=== PATIENT | male | born 2000 | race Caucasian/White ===

== ENCOUNTER → 2023-07-27 | Outpatient (CLI) | payer OTHER, SELFPAY ==
--- OUTSIDE RECORDS SUMMARY | 2023-07-28 02:14 | XMS RPT_ITS | CCD ---
Author Name Unknown Address [address] [place] [address] Organization [facility] Care Team Providers Care Labor Economics Professor Name Role Phone Jasen Hallman Unavailable Unavailable Jasen Hallman Unavailable Unavailable Lisa Pineda MD Primary Care Provider LISA PINEDA Primary Care Unavailable HEMALATHA GARCIA Referring Unavailable CARLOS JOVEL Referring Unavail LISA Hebert Primary Care Unavailable LISA PINEDA Primary Care Unavailable HEMALATHA GARCIA Attending Unavailable CARLOS JOVEL Admitting Unavail CARLOS Galan Referring Unavail able DALIA BAUER Attending Unavailable LISA PINEDA Primary Care Unavailable CARLOS JOVEL Referring Unavail able LISA PINEDA Primary Care Unavailable LISA PINEDA Primary Care Unavailable CARLOS JOVEL Referring Unavail able Allergies Allergy Classification Reported Allergen(s) Allergy Type Date of Onset Reaction(s) Facility (3 sources) Penicillin; Translations: [PENICILLIN] Drug Allergy 05-21-2017 Italo Slaughter [facility] Medications Completed/Discontinued Medications Medication Drug Class(es) Dates Sig (Normalized) Sig (Original) acetaminophen 325 mg / oxyCODONE hydrochloride 5 mg oral tablet (2 sources) Opioid Agonist Start: 08-24-2022 take 1-2 tablets by mouth every eight hours as needed for pain oxyCODONE-acetami nophen (PERCOCET) 5-325 mg tablet Indications: Calculus of ureter Take 1-2 tablets by mouth every 8 hours as needed for pain. 20 tablet 0 08/24/2022 Active Problems Active Problems Problem Classification Problem Date Documented Da te Episodic/Chronic Abdominal pain (3 sources) Left flank pain; Translations: [Unspecified abdominal pain] Onset: 08-10-2022 Episodic Calculus of urinary tract (20 sources) Kidney stone; Translations: [Calculus of kidney] Onset: 03-22-2017 Episodic Other nutritional; endocrine; and metabolic disorders (7 sources) Calculus = calcium oxalate; Translations: [Other disorders of calcium metabolism] Onset: 01-11-2018 01-11-2018 Chronic Unclassified (1 source) Unknown / UNK(Unknown) Onset: 03-22-2017 Past or Other Problems Problem Classification Problem Date Documented Da te Episodic/Chronic Genitourinary symptoms and ill-defined conditions (20 sources) Oliguria; Translations: [Anuria and oliguria] Onset: 01-11-2018 01-11-2018 Episodic Results Test Name Value Interpretation Reference Range Facil ity Vital Signs Date Time Vital Sign Value Performing Clinician Facavinash lity 08-28-2022 15:10-0400 Body height 182.9 cm Pst 1 [facility] 08-28-2022 15:10-0400 Body temperature 99.3 [degF] Pst [address] [facility] 08-28-2022 15:10-0400 Body weight 72.58 kg Pst 1 [facility] 08-28-2022 15:10-0400 Heart rate 61 /min Pst 1 [facility] 08-28-2022 15:10-0400 Respiratory rate 18 /min Pst [address] [facility] 08-28-2022 15:10-0400 SaO2% (BldA) [Mass fraction] 99 % Pst 1 [facility] 07-28-2022 15:11-0400 Body height 185.4 cm Hemalatha Garcia APRN.CNP Work Phone: [facility] 07-28-2022 15:11-0400 Body weight 72.58 kg Hemalatha Garcia APRN.CNP Work Phone: [facility] 07-28-2022 15:11-0400 Diastolic blood pressure 80 mm[Hg] Hemalatha Garcia APRN.CNP Work Phone: [facility] 07-28-2022 15:11-0400 Systolic blood pressure 130 mm[Hg] Hemalatha Garcia APRN.CNP Work Phone: [facility] Encounters Encounter Date Encounter Type Care Provider Facility Start: 09-23-2022 End: 09-23-2022 ambulatory LISA PINEDA Facility:[facility] Start: 09-01-2022 End: 09-03-2022 ambulatory CARLOS JOVEL Facility:[facility] Start: 08-28-2022 End: 08-28-2022 [facility] Start: 08-28-2022 End: 08-29-2022 ambulatory CARLOS JOVEL Pre Surgical Testing Procedures Date Procedure Procedure Detail Performing Clinician Start: 08-10-2022 Ct abdomen & pelvis w/o contrast material Hemalatha Garcia APRN.DEVELOPMENT WRITER Work Phone: Start: 07-28-2022 Culture bacterial quanttative colony count urine Hemalatha Garcia ENGINEER SPECIALIST.ARTI Work Phone: Start: 07-28-2022 Urnls dip stick/tabl et rgnt auto w/o microscopy Hemalatha Garcia ENGINEER SPECIALIST.ARTI Work Phone: Plan of Treatment Date Care Activity Detail Author Start: 01-15-2023 [facility] Start: 05-17-2022 DEPRESSION ASSESSMENT DEPRESSION ASSESSMENT [facility] Start: 01-15-2022 Influenza vaccination INFLUENZA (#1) [facility] Start: 2017 Urine microalbumin profile DTAP,TDAP,TD (1 - Tdap) [facility] Start: 01-15-2016 HEPATITIS C SCREENING HEPATITIS C SCREENING [facility] Start: 01-15-2016 HIV SCREENING HIV SCREENING [facility] Start: 01-15-2012 PEDS TO ADULT TRANSITION ANNUAL ASSESSMENT PEDS TO ADULT TRANSITION ANNUAL ASSESSMENT [facility] Start: 2010 PEDS TO ADULT TRANSITION INITIAL DISCUSSION PEDS TO ADULT TRANSITION INITIAL DISCUSSION [facility] Start: 2009 HPV VACCINE (1 - Male 2-dose series) HPV VACCINE (1 - Male 2-dose series) [facility] Start: 01-15-2008 MENINGOCOCCAL B: Consider based on risk (1 of 2 - Risk Bexsero 2-dose series) MENINGOCOCCAL B: Consider based on risk (1 of 2 - Risk Bexsero 2-dose series) [facility] Start: 1998 COVID-19 VACCINE (#1) COVID-19 VACCINE (#1) [facility] Start: 1998 HEPATITIS B (1 of 3 - 3-dose series) HEPATITIS B (1 of 3 - 3-dose series) [facility] Bacteria identified in Urine by Culture URINE CULTURE Microbiology Routine Kidney stone 07/28/2022 3:50 PM EDT [facility] Work Phone: End: 08-27-2023 Ct abdomen & pelvis w/o contrast material CT ABD/PEL WO IVCON Radiology Routine Left flank pain 1 Occurrences starting 07/28/2022 until 08/27/2023 [facility] Work Phone: Payers Date Payer Category Payer Unknown [id number] 2010 Unknown JYOTHI ROE BS FEP PPO [id number] 2010-Present [phone] [address] [place] [address] PPO [id number] Social History Date Type Detail Facility Start: 07-28-2022 Tobacco smoking stat [facility] Never smoked tobacco [facility] Start: 07-28-2022 Tobacco use and exposure Smoke less tobacco non-user [facility] Start: 07-28-2022 End: 08-28-2022 Alcohol intake Current non-drinker of alcohol (finding) [facility] Start: 1998 Sex Assigned At Not on file C [facility] Clinical Notes 07-28-2022 to 09-23-2022 Kaylin Abreu APRN.CNP - 08/28/2022 3:00 PM EDTPatient InstructionsTelephone Encounter - Anastacio Mccray Ma - 08/24/2022 12:48 PM EDTTelephone Encounter - Carmen Berumen [facility] Account Director - 08/24/2022 9:38 AM EDT Note Date & Type Note Facility 09-23-2022 Note HNO ID: [id number] Author: Mallory Aden RT(R) Service: Radiology Author Type: Technologist Type: Progress Notes Filed: 09/23/2022 3:03 PM Note Text: Radiology Service Progress Note PATIENT NAME: Arjun Sanchez DATE OF SERVICE: September 23, 2022 TIME: 2:48 PM PATIENT IDENTITY VERIFICATION COMPLETED USING TWO (2) IDENTIFIERS: Name and Date of confirmed by patient verbally. FALL SCREENING: Has the patient had 2 falls in the last year or 1 fall with injury or currently using an Ambulatory Assistive Device (Walker, Cane, Wheelchair, Crutches, etc.)? No PATIENT GENDER DATA: Male PATIENT RELEVANT IMPLANT DATA REVIEWED: Yes RADIOLOGY DEPARTMENT: General X-ray: Exam(s) Completed: Abdomen X-Ray: Abdomen PERIPHERAL IV DATA: Not applicable SIGNED BY: Mallory Aden RT(R) September 23, 2022 2:48 PM [facility] 09-03-2022 Note HNO ID: [id number] Author: Carlos Jovel MD Service: Urology Author Type: Physician Type: Progress Notes Filed: 09/03/2022 10:06 AM Note Text: UROLOGY PROGRESS NOTE PATIENT NAME: Arjun Sanchez DATE OF : 2000 ADMISSION DATE: 09/01/2022 9:01 AM Subjective No acute events overnight. Nephrostomy catheter and urethral catheter removed yesterday. Patient is voiding without issue. Tolerating regular diet. Flank pain improved. Greatly improved leakage from left flank incision overnight. Dressing changed last night at ~8PM and is dry this morning. Objective VS: BP 135/68 Pulse 77 Temp 36.9 ?C (98.4 ?F) (Oral) Resp 18 Ht 182.9 cm (6') Wt 72.6 kg (160 lb) SpO2 96% BMI 21.70 kg/m? I AND O - 24hr: Intake/Output Summary (Last 24 hours) at 09/03/2022 0707 Last data filed at 09/03/2022 0000 Gross per 24 hour Intake -- Output 1800 ml Net -1800 ml Physical Exam: General: Neck: Resp: Abdomen: No acute distress Supple Normal effort Soft, non-tender, nondistended : Mild left flank tenderness. Left flank incision c/d/i. Left flank dressing dry this morning. Bladder non-distended Labs and Imaging Studies LABS: BMP: Glucose (mg/dL) Date Value 09/03/2022 108 12/09/2017 101 Potassium Date Value 09/03/2022 4.2 mmol/L 12/09/2017 4.2 mEq/L Sodium Date Value 09/03/2022 138 mmol/L 12/09/2017 140 mEq/L Chloride Date Value 09/03/2022 102 mmol/L 12/09/2017 107 mEq/L CO2 Date Value 09/03/2022 28 mmol/L 12/09/2017 27 mEq/L Creatinine (mg/dL) Date Value 09/03/2022 1.04 12/09/2017 0.93 BUN (mg/dL) Date Value 09/03/2022 10 12/09/2017 10 Anion Gap Date Value 09/03/2022 8 mmol/L 12/09/2017 10 Calcium (mg/dL) Date Value 12/09/2017 8.5 Calcium, Total (mg/dL) Date Value 09/03/2022 9.1 CBC: Hemoglobin (g/dL) Date Value 09/03/2022 10.4 HGB (g/dL) Date Value 12/09/2017 13.3 Hematocrit (%) Date Value 09/03/2022 30.0 12/09/2017 39.0 WBC Date Value 09/03/2022 12.87 k/uL 12/09/2017 13.67 thou/cmm Platelet Count Date Value 09/03/2022 211 k/uL 12/09/2017 203 thou/cmm Urinalysis: Specific [place], Ur Date Value Ref Range Status 01/11/2018 1.013 1.005 - 1.030 Final Glucose, Urine Date Value Ref Range Status 01/11/2018 Negative Negative mg/dL Final Bilirubin, Urine Date Value Ref Range Status 01/11/2018 Negative Negative Final Ketones, Urine Date Value Ref Range Status 01/11/2018 Negative Negative Final Hemoglobin/Blood,Ur Date Value Ref Range Status 01/11/2018 1+ (A) Negative Final Protein, Urine Date Value Ref Range Status 01/11/2018 Negative Negative mg/dL Final Urobilinogen, Urine Date Value Ref Range Status 10/04/2017 0.2 Normal (<1.1) EU Final Nitrites Date Value Ref Range Status 01/11/2018 Negative Negative Final WBC, Urine Date Value Ref Range Status 01/11/2018 0-5 0 - 5 /HPF Final Urine Culture: Urine Culture (no units) Date Value 05/15/2019 No growth <1,000 CFU/ml. RADIOLOGY: CXR: No acute findings Assessment and Plan Problem List Renal calculus, left POA: Status not on file ASSESSMENT: 22 year old male POD2 from L PCNL PLAN: -Left flank drainage significantly improved. Discussed with patient and patient's to change dressing as needed. Likely will not need dressing after tomorrow -Hgb increased today. Leukocytosis downtrending -Post op CXR with no acute finding -Regular diet -Out of bed and ambulate -Discharge this morning Aaron Serrano MD Urology, PGY-5 September 03, 2022 8:13 AM Pager: [phone] [facility] 09-02-2022 Note HNO ID: [id number] Author: Aleksandr Ojeda MD Service: Urology Author Type: Physician Type: Progress Notes Filed: 09/02/2022 11:25 AM Note Text: UROLOGY PROGRESS NOTE PATIENT NAME: Arjun Sanchez DATE OF : 2000 ADMISSION DATE: 09/01/2022 9:01 AM Subjective No acute events overnight. Mild left flank pain. No increase in pain since nephrostomy catheter clamped. Tolerating a few crackers and liquids. No nausea/vomiting. Has not been out of bed. Objective VS: BP 142/66 Pulse 72 Temp 36.8 ?C (98.2 ?F) (Oral) Resp 16 Ht 182.9 cm (6') Wt 72.6 kg (160 lb) SpO2 99% BMI 21.70 kg/m? I AND O - 24hr: Intake/Output Summary (Last 24 hours) at 09/02/2022 0629 Last data filed at 09/02/2022 0056 Gross per 24 hour Intake 2305 ml Output 3481 ml Net -1176 ml Physical Exam: General: Neck: Resp: Abdomen: No acute distress Supple Normal effort Soft, non-tender, nondistended : Left flank mildly tender. No palpable hematoma. Dunn draining yellow urine. Left nephrostomy catheter clamped Labs and Imaging Studies LABS: BMP: Glucose (mg/dL) Date Value 09/02/2022 136 12/09/2017 101 Potassium Date Value 09/02/2022 4.6 mmol/L 12/09/2017 4.2 mEq/L Sodium Date Value 09/02/2022 138 mmol/L 12/09/2017 140 mEq/L Chloride Date Value 09/02/2022 105 mmol/L 12/09/2017 107 mEq/L CO2 Date Value 09/02/2022 23 mmol/L 12/09/2017 27 mEq/L Creatinine (mg/dL) Date Value 09/02/2022 1.23 12/09/2017 0.93 BUN (mg/dL) Date Value 09/02/2022 13 12/09/2017 10 Anion Gap Date Value 09/02/2022 10 mmol/L 12/09/2017 10 Calcium (mg/dL) Date Value 12/09/2017 8.5 Calcium, Total (mg/dL) Date Value 09/02/2022 8.1 CBC: Hemoglobin (g/dL) Date Value 09/02/2022 11.0 HGB (g/dL) Date Value 12/09/2017 13.3 Hematocrit (%) Date Value 09/02/2022 31.3 12/09/2017 39.0 WBC Date Value 09/02/2022 17.05 k/uL 12/09/2017 13.67 thou/cmm Platelet Count Date Value 09/02/2022 235 k/uL 12/09/2017 203 thou/cmm Urinalysis: Specific [place], Ur Date Value Ref Range Status 01/11/2018 1.013 1.005 - 1.030 Final Glucose, Urine Date Value Ref Range Status 01/11/2018 Negative Negative mg/dL Final Bilirubin, Urine Date Value Ref Range Status 01/11/2018 Negative Negative Final Ketones, Urine Date Value Ref Range Status 01/11/2018 Negative Negative Final Hemoglobin/Blood,Ur Date Value Ref Range Status 01/11/2018 1+ (A) Negative Final Protein, Urine Date Value Ref Range Status 01/11/2018 Negative Negative mg/dL Final Urobilinogen, Urine Date Value Ref Range Status 10/04/2017 0.2 Normal (<1.1) EU Final Nitrites Date Value Ref Range Status 01/11/2018 Negative Negative Final WBC, Urine Date Value Ref Range Status 01/11/2018 0-5 0 - 5 /HPF Final Urine Culture: Urine Culture (no units) Date Value 05/15/2019 No growth <1,000 CFU/ml. RADIOLOGY: CXR: No acute findings Assessment and Plan Problem List Renal calculus, left POA: Status not on file ASSESSMENT: 22 year old male POD1 from L PCNL PLAN: -No increased pain since left nephrostomy catheter has been clamped. This was removed at bedside this morning -Change flank dressing as needed -Remove Dunn catheter for voiding trial -Post op CXR with no acute finding -Hemoglobin decreased this morning. Repeat prior to discharge -Regular diet -Out of bed and ambulate -Possible discharge later today Aaron Serrano MD Urology, PGY-5 September 02, 2022 7:28 AM Pager: [phone] I evaluated the patient. Discussed with the resident and agree with resident's findings and plan as documented in the resident's note. [facility] 09-02-2022 Note HNO ID: [id number] Author: Mónica Narayanan RN Service: Nursing Author Type: Registered Nurse Type: Nursing Progress Note Filed: 09/02/2022 4:57 AM Note Text: Nephrostomy tube clamped at this time per urology. See nursing instruction order. [facility] 09-01-2022 Note HNO ID: [id number] Author: Noe Caraballo RN Service: Nursing Author Type: Registered Nurse Type: Nursing Progress Note Filed: 09/01/2022 4:43 PM Note Text: PCXR done per Order; [facility] 09-01-2022 Note HNO ID: [id number] Author: Radha Pan APRN.SERVICES DELIVERY DRIVER Service: Anesthesiology Author Type: Nurse Chief Of Safety And Protection Type: Anesthesia Procedure Notes Filed: 09/01/2022 3:51 PM Note Text: ANESTHESIOLOGY PROCEDURE NOTE PIV General Information Procedure Start Time/Medication Administration: 09/01/2022 3:51 PM Patient Location: OR Staffing SERVICES DELIVERY DRIVER: Kaya Miller APRN.SERVICES DELIVERY DRIVER Performed by: SERVICES DELIVERY DRIVER Preparation Sterility Preparation: hand hygiene performed prior to procedure, surgical cap used, mask used, skin prep agent completely dried prior to procedure Site Prep: Chloraprep Procedure Details Indication: need for IV access Needle Size/Type: 14 gauge angiocath Orientation: Left Location: Hand Imaging Guidance Used: No SIGNATURE: Radha Pan APRN.SERVICES DELIVERY DRIVER PATIENT NAME: Arjun Sanchez DATE: September 01, 2022 TIME: 3:51 PM CSN: [id number] [facility] 09-01-2022 Note HNO ID: [id number] Author: Kaya Miller APRN.SERVICES DELIVERY DRIVER Service: Anesthesiology Author Type: Nurse Chief Of Safety And Protection Type: Anesthesia Procedure Notes Filed: 09/01/2022 2:36 PM Note Text: ANESTHESIOLOGY PROCEDURE NOTE Airway General Information Procedure Start Time/Medication Administration: 09/01/2022 2:15 PM Patient location during procedure: OR Timeout Performed Pre-procedure: timeout performed Consent Obtained: Yes Patient identity confirmed: arm band Staffing SERVICES DELIVERY DRIVER: Kaya Miller APRN.SERVICES DELIVERY DRIVER Performed by: SERVICES DELIVERY DRIVER Indications and Patient Condition Indications for airway management: anesthesia Preoxygenated: yes anesthesia circuit Patient position: sniffing Method: asleep Difficult Mask: No Final Airway Details Final airway type: endotracheal airway Final Endotracheal Airway: ETT Successful intubation technique: direct laryngoscopy Endotracheal tube insertion site: oral Blade: Renetta Blade size: #4 ETT size (mm): 8.0 Measured from: lips Measurement (cm): 23 Placement verified by: chest auscultation and capnometry Cormack-Lehane Classification: grade I - full view of glottis Number of attempts at approach: 1 Airway not difficult SIGNATURE: Kaya Miller APRN.SERVICES DELIVERY DRIVER PATIENT NAME: Arjun Sanchez DATE: September 01, 2022 TIME: 2:36 PM CSN: [id number] [facility] 09-01-2022 Note HNO ID: [id number] Author: Lucia Thomas RN Service: Nursing Author Type: Registered Nurse Type: Nursing Progress Note Filed: 09/01/2022 1:27 PM Note Text: Gave only 1 vial of Zofran at 1316, had to get another vial and gave 4mg at 1326 [facility] 08-28-2022 History and physical note HISTORY AND PHYSICAL EXAMINATION SERVICE DATE: 08/27/2022 SERVICE TIME: 3:18 PM PRIMARY CARE PHYSICIAN: Lisa Pineda MD REASON FOR VISIT: Arjun Sanchez is a 22 year old male who is scheduled for * No surgery found * at the request of Dr. Carlos Jovel for routine H&P. My final recommendation will be communicated back to the requesting physician by way of shared medical record or letter. Subjective The patient has the following: ACTIVE PROBLEM LIST Calculus of Kidney Low Urine Output Hypocitraturia Hyperoxaluria Calcium Oxalate Calculus Phosphate Calculus Pre-Op Examination COVID-19 Immunization Status Overdue - COVID-19 VACCINE (1) Overdue - never done No completion, postpone, frequency change, or communication history exists for this topic. CHIEF COMPLAINT: The reason for this visit is to perform a comprehensive review of the patients past medical history, assess their current health status and obtain any additional testing required based on anesthesia guidelines. To assess and identify potential anesthesia problems, particularly those that may suggest potential complications or contraindications to the planned procedure. HPI: Patient is a 22 year old male who present for presurgical testing. Patient has extensive history of kidney stones. Pain is currently 2/10 flank pain at PAT visit. 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 States Tylenol, hot bath, or heat pad can help alleviate pain. Endorses hematuria. Denies dysuria, frequency and urgency. Denies fever or chills. Denies nausea and vomiting. Patient denies any other problems or concerns at this time. Risks and benefits of the procedure discussed by Surgeon and patient agreed to proceed with planned procedure. REVIEW OF SYSTEMS: General: No weight loss, malaise or fevers. Negative for: weight loss >10% of BW in last 6 months, malaise and fever. Neurological: Negative for: seizures and strokes. Respiratory: Negative for: asthma, COPD, pneumonia within 6 weeks, URI < 2 weeks and obstructive sleep apnea. Cardiovascular: Negative for: CAD, chest pain, CHF, DVT/PE, hyperlipidemia, hypertension and recent DC. GI: Negative for: GERD and liver disease. : Positive for: flank pain and hematuria. Negative for: dysuria, frequent urination and urgency. Endocrine: Negative for: diabetes mellitus and hyperthyroidism. Hematology: No history of bleeding or clotting disorder. Patient is not taking anti-coagulation or platelet medications. No history of hematological symptoms or problems. Oncology: No history of CA metastasis, chemo within 30 days, or radiotherapy within 90 days. No history of oncological symptoms or problems. Psych: Negative for: anxiety and depression. Musculoskeletal: Negative for joint pain or swelling, back pain or muscle pain. Skin: Negative for lesions, rash and itching. PAST MEDICAL HISTORY Diagnosis Date Kidney stones PAST SURGICAL HISTORY Procedure Laterality Date LITHOTRIPSY XTRCORP SHOCK WAVE Left 03/2016 Lithotripsy LITHOTRIPSY XTRCORP SHOCK WAVE Left 03/2015 Lithotripsy LITHOTRIPSY XTRCORP SHOCK WAVE Left 06/2014 Lithotripsy LITHOTRIPSY XTRCORP SHOCK WAVE Left 05/2014 LITHOTRIPSY XTRCORP SHOCK WAVE Left 2013 Lithotripsy LITHOTRIPSY XTRCORP SHOCK WAVE Left 02/2018 PAST SURGICAL HISTORY OF Left 04/2016 percutaneous nephrolithotomy PAST SURGICAL HISTORY OF Left 11/2017 percutaneous nephrolithotomy History reviewed. No pertinent family history. Social History Tobacco Use Smoking status: Never Smokeless tobacco: Never Vaping Use Vaping Use: Never used Substance Use Topics Alcohol use: No Drug use: No Prior to Admission medications as of 08/28/22 1503 Medication Sig Last Dose Taking fexofenadine HCl (SHANNA ALLERGY ORAL) Take by mouth. Taking Yes oxyCODONE-acetaminophen (PERCOCET) 5-325 mg tablet Take 1-2 tablets by mouth every 8 hours as needed for pain. Taking Yes sodium bicarbonate 650 mg tablet Take 2 tablets by mouth three times daily. Take by mouth as directed. hydroCHLOROthiazide (HYDRODIURIL, ESIDRIX) 25 mg tablet Take 1 tablet by mouth once daily. Potassium Citrate 15 mEq TbER TAKE 1 TABLET(15 MEQ) BY MOUTH TWICE DAILY. Patient not taking: Reported on 05/15/2019 pyridoxine, vitamin B6, (VITAMIN B-6) 100 mg tablet Take 1 tablet by mouth once daily. Patient not taking: Reported on 07/17/2019 Cetirizine 10 mg cap Take by mouth as needed. No medication comments found. ALLERGIES Allergen Reactions Penicillin Hives, Rash Objective PHYSICAL EXAM: General: alert and oriented and healthy appearance. Pertinent negatives noted - not distressed. Skin: normal color, no rash or lesions. HEENT: EOM intact and pupils equal round. Cardiovascular: regular rate and rhythm, normal S1 and S2, no rub, murmurs, or gallop. Respiratory: normal breath sounds, no wheezes or crackles. No chest wall deformity or tenderness. Abdomen: bowel sounds present. Extremities: no deformity, no edema or tenderness, no joint swelling or clubbing. Neurological: normal cognition and motor skills. Gait normal. No weakness or sensory deficit. PAIN ASSESSMENT: Pain Pain Level: 2 Frequency: Continuous VITALS: Pulse 61 Temp 99.3 Resp 18 Ht 6' 0 (1.83m) Wt 160 lb (72.6kg) SpO2 99% BMI 21.70 kg/(m^2). Diagnostic tests reviewed for today's visit: Lab Value Units Date High Low HB No results within date range. HCT No results within date range. WBC No results within date range. PLT No results within date range. NA No results within date range. K No results within date range. GLUC No results within date range. BUN No results within date range. CREAT No results within date range. PTSEC No results within date range. INR No results within date range. APTT No results within date range. ALT No results within date range. AST No results within date range. TBILI No results within date range. TSH No results within date range. Lab Value Units Date High Low HCGQT No results within date range. UHCG No results within date range. HCG, BODY* No results within date range. Lab Value Units Date High Low ABORHD No results within date range. ABSCREEN No results within date range. No results found for: HBA1C No results found for this or any previous visit (from the past 8760 hour(s)). No results found for this or any previous visit (from the past 59190 hour(s)). Assessment There is no known pertinent medical condition which may affect kevin-operative course Pre-op examination see note for medical conditions which may affect kevin-operative course that were addressed at today's visit. Calculus of kidney Surgery scheduled [place] Activity Status Index: METS: Run a short distance (8.00 METs) DASI Score: 8 Patient denies any chest pain or undue shortness of breath with the above physical activity. ARISCAT Score: Age: <=50 Preoperative SpO2: >=96% Respiratory infection in the last month: No Preoperative anemia: No Surgical incision: peripheral Duration of surgery: <2 hrs Emergency procedure: No ARISCAT Score: 0 ANESTHESIA FINDINGS: Intubation History: No history of difficult intubation Significant Anesthesia Considerations: none Airway History: No history of difficult airway I - PHYSICAL EVALUATION AIRWAY Patient intubated: No. DENTAL Dental findings: teeth intact. II - ANESTHESIA PLAN Anesthetic Plan: general Beta Enedelia Monitoring Plan Post Procedure Analgesic Plan Prepared for Surgery: CONSULTS: Patient does not require consults for optimization at this time Planned Anesthetic: general The Following Tests/Procedures Have Been Initiated: BMP, CBC, and urine culture ordered per surgeon. Implantable Devices: permanent lower retainer Assessment/Plan Renal calculus, left [N20.0] PLAN Planned Procedure: PERC NEPHROLITHOTOMY LITHOTRIPSY,STONE EXTRACTION,ANTEGRADE URETEROSCOPY,STENT PLACEMENT WHEN PERFORMED INCD IMAGING OVER 2cm I spent a total of 50 minutes on the date of the service which included preparing to see the patient, [id number] patient care, completing clinical documentation, obtaining and/or reviewing separately obtained history, performing a medically appropriate examination, and counseling and educating the patient/family/caregiver. Instructions Given to Patient: Instructions located in the after visit summary. Patient given verbal and written preop instructions and voices comprehension and compliance. SIGNATURE: Kaylin Abreu APRN.CNP PATIENT NAME: Arjun Sanchez DATE: August 27, 2022 TIME: 11:01 AM PAGER/CONTACT #: documented in this encounter [facility] 08-27-2022 Instructions Kaylin Abreu APRN.CNP - 08/27/2022 11:08 AM EDT PATIENT PREOPERATIVE INSTRUCTIONS Your surgeon has scheduled for your procedure at this surgery center: [facility]: [phone], [address] [id number] Please enter through the main entrance and proceed to the blue elevators. The surgery [facility] is located to the left of the blue elevator. Please read below carefully for your personalized instructions. Arrival Time for Surgery: DATE: 09/01/22 - To obtain your ARRIVAL TIME for surgery, call your physician's office the day before your surgery. - If your surgery is scheduled for Wednesday, call the Wednesday before. Your surgeon's edger hand will tell you what time to call the office. - Please be aware that emergency situations arise, which may delay or change your surgical time. If this happens, we will notify you as soon as possible and regret any inconvenience. Requirement for Vaccinations : 72-hour period between getting vaccine and date of surgery. Dietary Restrictions: - Nothing to eat after midnight. - You may have 12 ounces of clear liquids ( water, Gatorade, apple juice, carbonated beverage, clear tea or black coffee) until 4 hours before your surgery. This is important because if you do, your surgery may have to be cancelled Blood Thinning Medications: - Stop NSAIDS (Ibuprofen, Advil, Aleve, Motrin, Celebrex, Mobic, etc.) 7 days before surgery, as directed by your surgeon. You may take Tylenol (Acetaminophen) or any of your pain medications that do not contain aspirin or NSAIDS as needed. IF YOU TAKE ANY OF THE FOLLOWING BLOOD THINNERS, PLEASE CONTACT YOUR SURGEON AND THE PHYSICIAN WHO PRESCRIBES IT FOR YOU IN ORDER TO GET PERIOPERATIVE INSTRUCTIONS SOON POSSIBLE. BLOOD THINNERS: Aspirin , Coumadin, Plavix, Eliquis, Pradaxa, Xarelto, Lovenox, Brilinta, Effient, Savaysa, Arixtra, etc - Stop Vitamin E, fish oil, multivitamins, Marijuana, CBD oil and other over the counter herbals and dietary supplements 7 days before surgery. -This would not apply to cancer patients who are prescribed Marinol or any other prescription form on marijuana or CBD. Medications: Approved medications to take the morning of surgery with a sip of water: BP, HCTZ, Heart, thyroid, psych, seizure, and pain medications excluding NSAIDS. Use inhalers as prescribed. Please bring inhalers. Diabetes Please follow up with the provider that manages your diabetes and how to prepare you for surgery. If you are taking the following medications for Type 2 diabetes: Canagliflozin (INVOKANA), dapagliflozin (FARXIGA), and empagliflozin (JARDIANCE) should each be discontinued at least 3 days before scheduled surgery. Ertugliflozin (STEGLATRO) should be discontinued at least four days before scheduled surgery. If you have a stimulator, implant or pump that requires a remote please bring the remote with you day of surgery. Erectile dysfunction: If you take any medications for erectile dysfunction- Cialis (Tadalafil), Levitra, Staxyn, (Vardenafil), Viagra (Sildenenafil). Please do not take these for 48 hours before surgery. Pain Medications: Tylenol for pain as needed and if you are not allergic to. If you start any new medications after today's visit, please contact the surgeon's office. Important Reminders: - If you use CPAP/BIPAP, bring the machine with you to the surgery center. - If you are prescribed inhalers for breathing, continue using them AND bring them to the surgery center. - Candy, mints, gum and tobacco products are NOT permitted the morning of surgery. - Hearing aids, dentures and glasses may be worn the morning of surgery. - NO jewelry, body piercings, makeup, hairpins or contacts are to be worn the day of surgery. -Oral hygiene and a shower or bath is required the evening before or the morning of surgery. Use the Hibiclens body wash supplied to you along with the instruction. - NO lotion, creams, powders or deodorants on the skin the day of surgery -Wear loose, comfortable clothing that will accommodate bandages. -Your length of stay will be determined by your surgeon - You will need to have someone else (Family or friend) drive you home once discharged from the hospital. You are not allowed to drive yourself home after surgery. - YOU MUST HAVE A RESPONSIBLE PARALLEL COMPUTING SOFTWARE ENGINEER TAKE YOU HOME. A PIN MACHINE OPERATOR, CAB OR UBER PARALLEL COMPUTING SOFTWARE ENGINEER CANNOT BE MADE A RESPONSIBLE PARALLEL COMPUTING SOFTWARE ENGINEER. - You cannot stay in a hotel alone after outpatient surgery. You will not be permitted to have your surgery, if you do not have someone to take care of you. If you develop symptoms such as a fever, cold, or flu, or have other changes to your health within TWO DAYS of scheduled surgery or the morning of surgery, please contact the surgery center above. Personal Belongings: - Leave ALL valuables and money at home or with family members. - You will need a form of ID and insurance card to check in the morning of surgery. - You will have to wear a hospital gown during your stay but if you wish to bring undergarments for after surgery you may. Kaylin Abreu APRN.CNP 08/27/22 documented in this encounter [facility] 08-24-2022 Miscellaneous Notes Patient informed. Anastacio Mccray Ma Lmom for pt to call back to give him the message from Dr. Jovel. Carmen Berumen Cma Pt called asking for pain meds to tie him over until he has the surgery to have the kidney stone removed. Carmen Berumen Cma documented in this encounter [facility] 07-28-2022 Note HNO ID: [id number] Author: Hemalatha Garcia APRN.DEVELOPMENT WRITER Service: ? Author Type: Nurse Practitioner Type: Progress Notes Filed: 07/29/2022 10:39 AM Note Text: ESTABLISHED PATIENT OFFICE VISIT HISTORY OF PRESENT ILLNESS Arjun Sanchez is a 22 year old male with h/o kidney stones known to [facility] in 2019 who presents today as a new patient for follow up kidney stones. He has passed a couple stones within the last year. He currently c/o intermittent dull aching left flank pain. Worse with running. Heat and pressure makes it feel better. No fever or chills. No difficulty with voiding. No gross hematuria He has not taken K+ citrate for the last 2 years- he ran out. UA (+) small blood and trace LE Will get CT and send urine culture Follow up pending results LAB RESULTS Creatinine Date Value Ref Range Status 12/09/2017 0.93 0.67 - 1.17 mg/dL Final No results found for: PSA Color (no units) Date Value 01/11/2018 Yellow Clarity (no units) Date Value 01/11/2018 Turbid Glucose, Urine (mg/dL) Date Value 01/11/2018 Negative Bilirubin, Urine (no units) Date Value 01/11/2018 Negative Ketones, Urine (no units) Date Value 01/11/2018 Negative Specific [place], Ur (no units) Date Value 01/11/2018 1.013 Hemoglobin/Blood,Ur ( ) Date Value 01/11/2018 1+ pH, Urine (no units) Date Value 01/11/2018 7.0 Protein, Urine (mg/dL) Date Value 01/11/2018 Negative Urobilinogen (no units) Date Value 01/11/2018 Normal Nitrites (no units) Date Value 01/11/2018 Negative Leukest (no units) Date Value 01/11/2018 Negative MEDICATIONS: Cetirizine 10 mg cap Take by mouth as needed. sodium bicarbonate 650 mg tablet Take 2 tablets by mouth three times daily. Take by mouth as directed. hydroCHLOROthiazide (HYDRODIURIL, ESIDRIX) 25 mg tablet Take 1 tablet by mouth once daily. Potassium Citrate 15 mEq TbER TAKE 1 TABLET(15 MEQ) BY MOUTH TWICE DAILY. (Patient not taking: Reported on 05/15/2019) tamsulosin ER (FLOMAX) 0.4 mg cap Take 1 capsule by mouth daily at bedtime. (Patient not taking: Reported on 10/17/2018 ) docusate sodium (COLACE) 100 mg capsule Take 1 capsule by mouth twice daily as needed. (Patient not taking: Reported on 10/17/2018 ) pyridoxine, vitamin B6, (VITAMIN B-6) 100 mg tablet Take 1 tablet by mouth once daily. (Patient not taking: Reported on 07/17/2019 ) diphenhydrAMINE (ALLERGY) 25 mg tablet Take 25 mg by mouth every 6 hours as needed. REVIEW OF SYSTEMS CONSTITUTIONAL: Patient reports no recent fever or weight loss CARDIOVASCULAR: No chest pain, palpitations or ankle edema. RESPIRATORY: No wheezing, frequent cough or shortness of breath GENITOURINARY: See HPI HISTORIES PAST MEDICAL HISTORY Diagnosis Date Kidney stones History reviewed. No pertinent family history. PAST SURGICAL HISTORY Procedure Laterality Date LITHOTRIPSY XTRCORP SHOCK WAVE Left 03/2016 Lithotripsy LITHOTRIPSY XTRCORP SHOCK WAVE Left 03/2015 Lithotripsy LITHOTRIPSY XTRCORP SHOCK WAVE Left 06/2014 Lithotripsy LITHOTRIPSY XTRCORP SHOCK WAVE Left 05/2014 LITHOTRIPSY XTRCORP SHOCK WAVE Left 2013 Lithotripsy LITHOTRIPSY XTRCORP SHOCK WAVE Left 02/2018 PAST SURGICAL HISTORY OF Left 04/2016 percutaneous nephrolithotomy PAST SURGICAL HISTORY OF Left 11/2017 percutaneous nephrolithotomy SOCIAL HISTORY Social History Tobacco Use Smoking status: Never Smokeless tobacco: Never Vaping Use Vaping Use: Never used Substance Use Topics Alcohol use: No Drug use: No PHYSICAL EXAMINATION General appearance: Well appearing, alert, in no acute distress, well-hydrated, well nourished.. BACK: positive findings: Mild Left CVAT. MUSCULOSKELETAL: Negative for joint pain or swelling. RESPIRATORY: Normal respiratory effort. SKIN: Normal color, no rash, no lesions.. ASSESSMENT/PLAN: 1. Kidney stone - ICD9: 592.0, ICD10: N20.0 (primary diagnosis) 2. Left flank pain - ICD9: 789.09, ICD10: R10.9 - CT ABD/PEL WO IVCON - URINE CULTURE - Follow up pending results Hemalatha Garcia APRN.[facility] 07-28-2022 History of Carmen garzon illness Narrative ESTABLISHED PATIENT OFFICE VISIT HISTORY OF PRESENT ILLNESS Arjun Sanchez is a 22 year old male with h/o kidney stones known to [facility] in 2019 who presents today as a new patient for follow up kidney stones. He has passed a couple stones within the last year. He currently c/o intermittent dull aching left flank pain. Worse with running. Heat and pressure makes it feel better. No fever or chills. No difficulty with voiding. No gross hematuria He has not taken K+ citrate for the last 2 years- he ran out. UA (+) small blood and trace LE Will get CT and send urine culture Follow up pending results LAB RESULTS Creatinine Date Value Ref Range Status 12/09/2017 0.93 0.67 - 1.17 mg/dL Final No results found for: PSA Color (no units) Date Value 01/11/2018 Yellow Clarity (no units) Date Value 01/11/2018 Turbid Glucose, Urine (mg/dL) Date Value 01/11/2018 Negative Bilirubin, Urine (no units) Date Value 01/11/2018 Negative Ketones, Urine (no units) Date Value 01/11/2018 Negative Specific [place], Ur (no units) Date Value 01/11/2018 1.013 Hemoglobin/Blood,Ur ( ) Date Value 01/11/2018 1+ pH, Urine (no units) Date Value 01/11/2018 7.0 Protein, Urine (mg/dL) Date Value 01/11/2018 Negative Urobilinogen (no units) Date Value 01/11/2018 Normal Nitrites (no units) Date Value 01/11/2018 Negative Leukest (no units) Date Value 01/11/2018 Negative MEDICATIONS: Cetirizine 10 mg cap Take by mouth as needed. sodium bicarbonate 650 mg tablet Take 2 tablets by mouth three times daily. Take by mouth as directed. hydroCHLOROthiazide (HYDRODIURIL, ESIDRIX) 25 mg tablet Take 1 tablet by mouth once daily. Potassium Citrate 15 mEq TbER TAKE 1 TABLET(15 MEQ) BY MOUTH TWICE DAILY. (Patient not taking: Reported on 05/15/2019) tamsulosin ER (FLOMAX) 0.4 mg cap Take 1 capsule by mouth daily at bedtime. (Patient not taking: Reported on 10/17/2018 ) docusate sodium (COLACE) 100 mg capsule Take 1 capsule by mouth twice daily as needed. (Patient not taking: Reported on 10/17/2018 ) pyridoxine, vitamin B6, (VITAMIN B-6) 100 mg tablet Take 1 tablet by mouth once daily. (Patient not taking: Reported on 07/17/2019 ) diphenhydrAMINE (ALLERGY) 25 mg tablet Take 25 mg by mouth every 6 hours as needed. REVIEW OF SYSTEMS CONSTITUTIONAL: Patient reports no recent fever or weight loss CARDIOVASCULAR: No chest pain, palpitations or ankle edema. RESPIRATORY: No wheezing, frequent cough or shortness of breath GENITOURINARY: See HPI HISTORIES PAST MEDICAL HISTORY Diagnosis Date Kidney stones History reviewed. No pertinent family history. PAST SURGICAL HISTORY Procedure Laterality Date LITHOTRIPSY XTRCORP SHOCK WAVE Left 03/2016 Lithotripsy LITHOTRIPSY XTRCORP SHOCK WAVE Left 03/2015 Lithotripsy LITHOTRIPSY XTRCORP SHOCK WAVE Left 06/2014 Lithotripsy LITHOTRIPSY XTRCORP SHOCK WAVE Left 05/2014 LITHOTRIPSY XTRCORP SHOCK WAVE Left 2013 Lithotripsy LITHOTRIPSY XTRCORP SHOCK WAVE Left 02/2018 PAST SURGICAL HISTORY OF Left 04/2016 percutaneous nephrolithotomy PAST SURGICAL HISTORY OF Left 11/2017 percutaneous nephrolithotomy SOCIAL HISTORY Social History Tobacco Use Smoking status: Never Smokeless tobacco: Never Vaping Use Vaping Use: Never used Substance Use Topics Alcohol use: No Drug use: No PHYSICAL EXAMINATION General appearance: Well appearing, alert, in no acute distress, well-hydrated, well nourished.. BACK: positive findings: Mild Left CVAT. MUSCULOSKELETAL: Negative for joint pain or swelling. RESPIRATORY: Normal respiratory effort. SKIN: Normal color, no rash, no lesions.. ASSESSMENT/PLAN: 1. Kidney stone - ICD9: 592.0, ICD10: N20.0 (primary diagnosis) 2. Left flank pain - ICD9: 789.09, ICD10: R10.9 - CT ABD/PEL WO IVCON - URINE CULTURE - Follow up pending results Hemalatha Garcia APRN.DEVELOPMENT WRITER documented in this encounter [facility] Diagnosis Left flank pain Abdominal pain, unspecified site documented in this encounter [facility] note* Diagnosis Kidney stone- Primary Calculus of kidney Renal calculus, left Calculus of kidney Renal calculus, left Calculus of kidney documented in this encounter [facility] note* Diagnosis Calculus of ureter- Primary Renal calculus, left Calculus of kidney Renal calculus, left Calculus of kidney documented in this encounter [facility] note* Diagnosis Pre-op examination Preoperative examination, unspecified Calculus of kidney Renal calculus, left Calculus of kidney Renal calculus, left Calculus of kidney documented in this encounter [facility] Summary Purpose Family History No Family History Records FoundNo Family History Records FoundNo Family History Records FoundNo Family History Records Found Advance Directives No Advanced Directives Records FoundNo Advanced Directives Records FoundNo Advanced Directives Records FoundNo Advanced Directives Records Found Reason for Referral Specialty Diagnoses / Procedures Referred By Cuate garzon Referred To Contact CT IMAGING Diagnoses Left flank pain Procedures CT ABD/PEL WO IVCON CT ABD & PELVIS W/O CONTRAST Hemalatha Garcia APRN.DEVELOPMENT WRITER [address] [place] [address] Ct Imaging Referral ID Status Reason Start Date Expiration Date Visits Requested Visits Authorized [id number] Authorized Auto-Generat ed Referral 07/29/2022 05/16/2023 1 1 Referral ID Status Reason Start Date Expiration Date V isits Requested Visits Authorized [id number] Closed Auto-Generate d Referral 07/29/2022 05/16/2023 1 1 Additional Source Comments (unrecognized sect ion and content) No Status Records FoundNo Status Records FoundNo Status Records FoundNo Status Records Found INFORMATION SOURCE (unrecogn ized section and content) DATE CREATED AUTHOR AUTHOR'S ORGANIZ ATION 02/04/2020 [facility] DATE CREATED AUTHOR AUTHOR'S ORGANIZ ATION 09/09/2022 [facility] DATE CREATED AUTHOR AUTHOR'S ORGANIZ ATION 09/25/2022 [facility] Source Comments (unrecognize d section and content) In the event this informatio n is protected by the Federal Confidentiality of Alcohol and Drug Abuse Patient Records regulations: The Federal rules restrict any use of the information to criminally investigate or prosecute any alcohol or drug abuse patient.[facility] the event this information is protected by the Federal Confidentiality of Alcohol and Drug Abuse Patient Records regulations: The Federal rules restrict any use of the information to criminally investigate or prosecute any alcohol or drug abuse patient.[facility] the event this information is protected by the Federal Confidentiality of Alcohol and Drug Abuse Patient Records regulations: The Federal rules restrict any use of the information to criminally investigate or prosecute any alcohol or drug abuse patient.[facility] the event this information is protected by the Federal Confidentiality of Alcohol and Drug Abuse Patient Records regulations: The Federal rules restrict any use of the information to criminally investigate or prosecute any alcohol or drug abuse patient.[facility] the event this information is protected by the Federal Confidentiality of Alcohol and Drug Abuse Patient Records regulations: The Federal rules restrict any use of the information to criminally investigate or prosecute any alcohol or drug abuse patient.[facility] the event this information is protected by the Federal Confidentiality of Alcohol and Drug Abuse Patient Records regulations: The Federal rules restrict any use of the information to criminally investigate or prosecute any alcohol or drug abuse patient.[facility] the event this information is protected by the Federal Confidentiality of Alcohol and Drug Abuse Patient Records regulations: The Federal rules restrict any use of the information to criminally investigate or prosecute any alcohol or drug abuse patient.[facility] Reason for Visit (unrecogniz ed section and content) Specialty Diagnoses / Procedures Referred By Contac t Referred To Contact CT IMAGING Diagnoses Left flank pain Procedures CT ABD/PEL WO IVCON CT ABD & PELVIS W/O CONTRAST Hemalatha Garcia APRN.DEVELOPMENT WRITER [address] [place] [address] Ct Imaging Referral ID Status Reason Start Date Expiration Date V isits Requested Visits Authorized [id number] Closed Auto-Generate d Referral 07/29/2022 05/16/2023 1 1 Reason Comments Patient Question Reason Comments Opened In Error Care Teams (unrecognized sec tion and content) Labor Economics Professor Relationship Specialty Start Date End Date Lisa Pineda MD [address] [phone] PCP - General Family Medicine 11/02/16 Labor Economics Professor Relationship Specialty Start Date End Date Lisa Pineda MD [address] [phone] PCP - General Family Medicine 11/02/16 Labor Economics Professor Relationship Specialty Start Date End Date Lisa Pineda MD [address] [phone] PCP - General Family Medicine 11/02/16 Labor Economics Professor Relationship Specialty Start Date End Date Lisa Pineda MD [address] [phone] PCP - General Family Medicine 11/02/16 Labor Economics Professor Relationship Specialty Start Date End Date Lisa Pineda MD [address] [phone] PCP - General Family Medicine 11/02/16 FOR RECORDS PERTAINING TO PATIENTS WHO ARE OR HAVE BEEN ENROLLED IN A CHEMICAL DEPENDENCY/SUBSTANCEABUSE PROGRAM, SOME INFORMATION MAY BE OMITTED. This clinical summary was aggregated from multiple sources. Caution should be exercised in using it in the provision of clinical care. This summary normalizes information from multiple sources, and as a consequence, information in this document may materially change the coding, format and clinical context of patient data. In addition, data may be omitted in some cases. CLINICAL DECISIONS SHOULD BE BASED ON THE PRIMARY CLINICAL RECORDS. [facility]. provides no warranty or guarantee of the accuracy or completeness of information in this document.
== END | disposition home or self-care (01) ==
PROVIDERS: Referring Provider Advanced Practice Midwife; Visit Provider Advanced Practice Midwife
DX: Z01.83 Encounter for blood typing (principal)
CPT/HCPCS: 36415; 86900; 86901